=== PATIENT | female | born 1955 | race Caucasian/White ===

== ENCOUNTER 2017-05-13 19:57 | Emergency (ER) | payer OTHER, BC ==
[~2017-05-13] VITALS: Wt 86.2 kg
[2017-05-13] MEDS ORDERED: HYDROCHLOROTHIA25 M1 PO (20:04)
[2017-05-13] MEDS ORDERED: AMLODIPINE BESY10 MG PO (20:04)
[2017-05-13] MEDS ORDERED: BENAZEPRIL HYDR40 MG PO (20:04)
[2017-05-13] MEDS ORDERED: FISH OIL 1,2001 EAC3 PO (20:05)
[2017-05-13] MEDS ORDERED: VITAMIN D31000 UNIT PO (20:06)
[2017-05-13] MEDS ORDERED: LIPITOR10 MG PO (20:06)
[2017-05-13] MEDS ORDERED: ASPIRIN CHEWABL81 MG PO (20:06)
[2017-05-13] MEDS ORDERED: Motrin,Rufen800 MG PO (21:11)
[2017-05-13] MEDS ORDERED: Orphenadrine C100 MG PO (21:11)
[2017-05-13 21:17] LABS: BILIRUBIN NEGATIVE (NEGATIVE); BLOOD TRACE-LYSED (NEGATIVE); CLARITY CLEAR (CLEAR); COLOR YELLOW (YELLOW); GLUCOSE 2+ (NEGATIVE); KETONE NEGATIVE (NEGATIVE); LEUKO ESTERASE 2+ (NEGATIVE); NITRITE NEGATIVE (NEGATIVE); UROBILINOGEN 0.2 E.U./dl (0.2-1.0)
[2017-05-13 21:30] LABS: BACTERIA 1+; WBC 21-30 wbc/hpf (0-5)
== END 2017-05-13 21:18 | disposition home or self-care (01) ==
LOC: ED 19:57
PROVIDERS: Emergency Medicine Emergency Medical Services
DX: S16.1XXA Strain of muscle, fascia and tendon at neck level, initial encounter (principal); S00.83XA Contusion of other part of head, initial encounter; Z79.82 Long term (current) use of aspirin; Z79.899 Other long term (current) drug therapy; Z88.8 Allergy status to other drugs, medicaments and biological substances; V49.88XA Car occupant (driver) (passenger) injured in other specified transport accidents, initial encounter; Y93.89 Activity, other specified; Y92.413 State road as the place of occurrence of the external cause; Y99.9 Unspecified external cause status